=== PATIENT | female | born 1990 | race Caucasian/White ===

== ENCOUNTER → 2018-05-18 16:00 | Outpatient (CLI) | payer MEDICAID, SELFPAY ==
[2018-05-23 15:00] LABS: HPV APTIMA, High Risk Negative (Negative)
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
== END ==
PROVIDERS: Family Provider Internal Medicine; PCP Internal Medicine; Referring Provider Obstetrics & Gynecology; Visit Provider Obstetrics & Gynecology
DX: Z12.4 Encounter for screening for malignant neoplasm of cervix (principal)
CPT/HCPCS: 88175; G0145

== ENCOUNTER 2021-03-15 11:10 | Inpatient (IN) | payer OTHER, SELFPAY ==
[2021-03-15] VITALS (50 sets, daily range): BP systolic 114–180; BP diastolic 56–85; PULSE 46–208; RESP 14–16; TEMP 36.2–37.3; O2SAT 82–100; BMI 33.1
[2021-03-15] MEDS: Lactated Ringers 1,000 ML 50 ML IV (11:46)
[2021-03-15] MEDS: Magnesium Sulfate 20 GM/500 ML BAG IV ×2 (11:47→21:46)
[2021-03-15] MEDS: 0.9% Saline Lock 10 ML Syringe IV (11:47)
[2021-03-15] MEDS: Acetaminophen 500 MG Tablet 1000 MG PO (11:49)
--- NOTE | 2021-03-15 12:30 | EKG12_ITS ---
Test Reason : TACHY & HTN Blood Pressure : / mmHG Vent. Rate : 050 BPM Atrial Rate : 050 BPM P-R Int : 126 ms QRS Dur : 082 ms QT Int : 500 ms P-R-T Axes : 039 081 050 degrees QTc Int : 455 ms Sinus bradycardia with sinus arrhythmia Otherwise normal ECG When compared with ECG of 16-AUG-2011 14:29, No significant change was found Confirmed by BENTLEY NICK, RUBY ([id number]), editor book STEPHANIE COMER ([id number]) on 03/18/2021 10:17:20 AM Referred By: JOSÉ ANTONIO Confirmed By:RUBY HAGAN MD
--- NOTE | 2021-03-15 13:29 | HP.PCM.OB_ITS ---
HPI - General General Date of Admission: 03/15/21 HPI Phoenix CLAY, is a 31 F who presents from outside ED via squad. She delivered [address] [facility]. Patient presented early this morning to ED with a headache since last night. Denies RUQ pain. Currently she describes her headache as in her posterior head, neck & upper back. PFSH PFSH Medical History (Updated 03/15/21 @ 13:[address] Sabine Samayoa MD) History of kidney stones Severe pre-eclampsia, Home Medications ondansetron 4 mg PO Q8H PRN PRN #10 tab 08/26/16 [Rx Last Taken Unknown] acetaminophen [Tylenol] 650 mg PO Q8 PRN 03/15/21 [History Last Taken 03/14/21 650] hydrocodone-acetaminophen [Vicodin] 500 tab PO Q8 PRN 03/15/21 [History Last Taken 03/14/21 1900] ibuprofen 600 mg PO Q6H PRN MDD 2400 03/15/21 [History Last Taken 03/15/21 0000] Allergy/AdvReac Type Severity Reaction Status Date / Time No Known Allergies Allergy Verified 07/09/13 11:54 Surgical History (Updated 03/15/21 @ 13:[address] Sabine Samayoa MD) H/O lithotripsy Social History Smoking Status: Current every day smoker tobacco type: cigarettes Vital Signs Vital Signs Vital Signs: 03/15/21 11:36 03/15/21 11:48 03/15/21 12:02 Temperature Temperature Source Pulse Rate 65 50 L 50 L Respiratory Rate Respiratory Effort Respiratory Depth Respiratory Pattern Blood Pressure 123/61 H 140/74 H 146/71 H Blood Pressure [BP] Blood Pressure Mean Blood Pressure Mean [BP] BP Systolic 123 140 146 BP Diastolic 61 74 71 Blood Pressure Source Blood Pressure Source [BP] Blood Pressure Position Blood Pressure Position [BP] Blood Pressure Location Blood Pressure Location [BP] Pulse Ox Oxygen Delivery Method 03/15/21 12:18 03/15/21 12:24 03/15/21 12:32 Temperature 97.8 F 97.8 F Temperature Source Temporal Temporal Pulse Rate 51 L 51 L 51 L Respiratory Rate 16 16 Respiratory Effort Normal Respiratory Depth Normal Respiratory Pattern Normal Blood Pressure 130/61 H 130/61 H 129/65 H Blood Pressure [BP] 130/61 H Blood Pressure Mean 84 Blood Pressure Mean [BP] 84 BP Systolic 130 129 BP Diastolic 61 65 Blood Pressure Source Monitor Blood Pressure Source [BP] Monitor Blood Pressure Position Semi-Fowlers Blood Pressure Position [BP] Semi-Fowlers Blood Pressure Location Left Arm Blood Pressure Location [BP] Left Arm Pulse Ox 100 100 Oxygen Delivery Method Room Air Room Air 03/15/21 12:47 03/15/21 13:02 03/15/21 13:11 Temperature 97.8 F Temperature Source Temporal Pulse Rate 51 L 54 L 54 L Respiratory Rate 16 Respiratory Effort Respiratory Depth Respiratory Pattern Blood Pressure 124/63 H 121/56 H 121/56 H Blood Pressure [BP] Blood Pressure Mean 77 Blood Pressure Mean [BP] BP Systolic 124 121 BP Diastolic 63 56 Blood Pressure Source Monitor Blood Pressure Source [BP] Blood Pressure Position Semi-Fowlers Blood Pressure Position [BP] Blood Pressure Location Left Arm Blood Pressure Location [BP] Pulse Ox 98 Oxygen Delivery Method Room Air 03/15/21 13:13 Temperature Temperature Source Pulse Rate 46 L Respiratory Rate Respiratory Effort Respiratory Depth Respiratory Pattern Blood Pressure Blood Pressure [BP] Blood Pressure Mean Blood Pressure Mean [BP] BP Systolic BP Diastolic Blood Pressure Source Blood Pressure Source [BP] Blood Pressure Position Blood Pressure Position [BP] Blood Pressure Location Blood Pressure Location [BP] Pulse Ox 97 Oxygen Delivery Method Weight Weight: 187 lb Body Mass Index (BMI) 33.1 Physical Exam Const alert, oriented x3 and no apparent distress Resp normal respiratory effort GI soft to palpation, non-tender and non-distended Extremity normal to inspection and no calf tenderness Labs Labs Labs: Hct 39.2 % (37-47) Hgb 13.5 g/dl (12.0-15.0) Neisseria gonorrhoeae DNA (KEEGAN) Positive (Negative-) H Assessment & Plan (1) Severe pre-eclampsia, : COMMENT: HD#1 PLAN: Admit to L&D Plan for 24 hours magnesium sulfate. Patient aware that will likely be admitted until at least Wednesday. Labs normal at OSH Headache - CT at OSH negative for acute intracranial abnormality. May be more musculoskeletal based on location so will try head and flexeril PRN (checked interactions with pharmacy). Also patient usually smokes 1/2 PPD so would consider a nicotine 7mg patch as well. Bradycardia - sinus bradycardia on EKG. Will monitor & consult medicine if needed. Most recent HR of 56.
[2021-03-15] MEDS: cycloBENZAPRine HCl 10 MG Tablet PO (15:51)
[2021-03-15] MEDS: Morphine 2 MG/ML Syringe IV ×2 (19:22→21:45)
[2021-03-16] VITALS (111 sets, daily range): BP systolic 101–157; BP diastolic 55–85; PULSE 8–99; RESP 14–20; TEMP 35.7–37.4; O2SAT 82–100
[2021-03-16] MEDS: Morphine 2 MG/ML Syringe IV ×2 (00:19→06:46)
[2021-03-16] MEDS: DiphenhydrAMINE 25 MG Capsule 50 MG PO (03:09)
[2021-03-16] MEDS: Labetalol 200 MG Tablet PO ×3 (06:03→22:37)
[2021-03-16] MEDS: 0.9% Saline Lock 10 ML Syringe IV ×2 (06:47→09:00)
--- NOTE | 2021-03-16 07:04 | NURSING ---
Patient's pulse ox reading 91% on room air while sensor on right big toe. Pulse ox sensor moved to index finger on right hand and reading 95% but decreased to 90-93%. Pt just received dose of morphine 1ml for headache, pt resting but awakens easily to voice.
[2021-03-16] MEDS: Magnesium Sulfate 20 GM/500 ML BAG IV (07:12)
[2021-03-16] MEDS: Lactated Ringers 1,000 ML 50 ML IV (07:14)
--- NOTE | 2021-03-16 09:18 | PCM.PN.OB ---
Subjective Subjective Patient states her headache is still there. It improves with morphine. Patient was able to sleep last night Objective Data Objective Data Vital Signs: Vital Signs Temp Pulse Resp BP Pulse Ox 98.1 F 72 16 112/69 97 03/16/21 09:00 03/16/21 09:00 03/16/21 09:00 03/16/21 09:00 03/16/21 09:00 Oxygen Delivery Method Room Air Weight: 187 lb Body Mass Index (BMI) 33.1 Intake & Output: Intake and Output for Last 24 Hours 03/14/21 03/15/21 03/16/21 23:59 23:59 23:59 Intake Total 1993.34 / 1992.34 1500.83 / 1500.83 Output Total 3200 / 3200 2650 / 2650 Balance -1206.66 / -1206.66 -1149.17 / -1149.17 Physical Exam Const alert, oriented x3 and no apparent distress HEENT normocephalic GI soft to palpation, non-tender and non-distended GI Narrative: fundus firm, mid & below umbilicus Extremity normal to inspection and no calf tenderness Assessment & Plan (1) Severe pre-eclampsia, : COMMENT: HD#2 PLAN: S/p 24hours magnesium sulfate Headache is stable & improves with morphine. Will assess for improvement off magnesium and with patient resuming normal activities (eating a normal diet & resuming tobacco use). If headache persists will consult anesthesia for possible spinal headache as patient reports 2 epidural attempts & the headache is a little better barreto she lays down (patient has not tried laying completed flat yet). Continue labetalol 200mg tid and will titrate as needed Routine PP care
--- NOTE | 2021-03-16 12:23 | NURSING ---
Dr Samayoa called at 1208 and informed pt rested for 2 hours almost completely flat in bed. pt voiced headache was was just dull and achy 3/10 scale. once she sat straight up it began to throb again 7/10 scale. had ate breakfast and drank some caffeine. Dr Samayoa wants anesthesia to come over and talk with pt for spinal headache rule out. Dr Broussard notified and informed of the above information. also aware pt delivered on 03/05 and multiple attempts for epidural at delivery hospital. headache came on a 2-3 days ago. pt is a smoker and had not been out to smoke. Dr sewell believes this is not a spinal headache. Pt currently pumping and will be going outside to smoke to see if that helps with her headache. fluids encouraged.
[2021-03-16] MEDS: Acetaminophen/Butalbital/Caffe 1 Tablet PO (13:24)
[2021-03-17 04:15] VITALS: BP 131/74; PULSE 56; RESP 20; TEMP 37
[2021-03-17 04:16] VITALS: BP 131/74; PULSE 56
[2021-03-17] MEDS: Labetalol 200 MG Tablet PO (06:08)
[2021-03-17 08:00] VITALS: BP 135/77; PULSE 64; RESP 18; TEMP 36.2; O2SAT 99
--- NOTE | 2021-03-17 08:08 | PCM.DC ---
Discharge Instructions Diet Discharge Diet: No restrictions Activity May resume sexual activity in: 6-8 weeks Additional Activity Instructions:: CHECK BP before taking labetalol and then 1 hour after. Dressing / Incision Call your doctor if you observe: Fever of 101 or Higher, Inability to urinate, Using more than 1 pad per hour and Uncontrolled pain Follow Up Care Please Follow Up With: Kathy Harding MD When: WednesdayMarch 19 at 9am for BP check and then at 6 weeks post . [phone] Test Results: Test results from this visit will be discussed in further detail at your follow-up appointment, if applicable. Discharge Plan Admission Admit Date/Time: 03/15/21 11:10 Attending Provider: Sabine Samayoa Primary Care Provider: Lety Borden Instructions Patient Instructions: Understanding Preeclampsia Discharge Orders/Prescriptions Prescriptions: New (DME) Blood Pressure Cuff Misc See Rx Instructions .ROUTE .MEDSUPPLY Qty: 1 RF: 0 labetalol 200 mg Tablet 200 mg PO TID Qty: 90 RF: 0 Continued ondansetron 4 MG tablet 4 mg PO Q8H PRN PRN (Reason: Nausea) Qty: 10 RF: 0 acetaminophen [Tylenol] 325 mg Tablet 650 mg PO Q8 PRN (Reason: Pain) RF: 0 hydrocodone-acetaminophen 5-500 mg Tablet 500 tab PO Q8 PRN (Reason: Pain) RF: 0 ibuprofen 600 mg Tablet 600 mg PO Q6H MDD 2400 PRN (Reason: Pain) RF: 0 Referrals / Follow Up: Lety Borden MD [Primary Care Provider] -
[2021-03-17 08:16] VITALS: BP 135/77; PULSE 64
--- NOTE | 2021-03-17 08:23 | PCM.DC.BLA ---
Discharge Summary Date of Admission: 03/15/21 Date of Discharge: 03/17/21 Summary: Patient was admitted to [facility] on 03/15/[address] Samayoa for preeclampsia severe features. Patient was placed on magnesium sulfate x24 hours. Started on labetalol 200 mg 3 times daily. Prior to this admission patient had a CT of the head which was within normal limits-this was done at [facility]. Patient was discharged home on hospital day #2 in stable condition. Patient will monitor blood pressure continue labetalol at home and will follow-up in the office on 03/19/2021. Meaningful Use Info Meaningful Use Diagnoses (Choose all that apply): None applicable Discharge Plan Admission Admit Date/Time: 03/15/21 11:10 Attending Provider: Sabine Samayoa Primary Care Provider: Lety Borden Instructions Patient Instructions: Understanding Preeclampsia Discharge Orders/Prescriptions Prescriptions: New (DME) Blood Pressure Cuff Misc See Rx Instructions .ROUTE .MEDSUPPLY Qty: 1 RF: 0 labetalol 200 mg Tablet 200 mg PO TID Qty: 90 RF: 0 Continued ondansetron 4 MG tablet 4 mg PO Q8H PRN PRN (Reason: Nausea) Qty: 10 RF: 0 acetaminophen [Tylenol] 325 mg Tablet 650 mg PO Q8 PRN (Reason: Pain) RF: 0 hydrocodone-acetaminophen 5-500 mg Tablet 500 tab PO Q8 PRN (Reason: Pain) RF: 0 ibuprofen 600 mg Tablet 600 mg PO Q6H MDD 2400 PRN (Reason: Pain) RF: 0 Referrals / Follow Up: Lety Borden MD [Primary Care Provider] - Disposition Disposition (needs filled in before D/C Order can be placed): Home, Self Care
--- NOTE | 2021-03-17 08:24 | PCM.PN.OB ---
Subjective Subjective Patient seen at bedside, doing well. Patient reports feeling much better. She denies any headaches or visual changes. She was up ambulating. Patient reports is breast-feeding. Lochia is mild. Patient ready for DC home today. Objective Data Objective Data Vital Signs: Vital Signs Temp Pulse Resp BP Pulse Ox 97.1 F L 64 18 135/77 H 99 03/17/21 08:00 03/17/21 08:16 03/17/21 08:00 03/17/21 08:16 03/17/21 08:00 Oxygen Delivery Method Room Air Weight: 84.822 kg Body Mass Index (BMI) 33.1 Intake & Output: Intake and Output for Last 24 Hours 03/15/21 03/16/21 03/17/21 23:59 23:59 23:59 Intake Total 1992.34 / 34 1679.16 / 1679.16 Output Total 3200 / 3200 2650 / 2650 Balance -1206.66 / -1206.66 -970.84 / -970.84 Assessment & Plan (1) Severe pre-eclampsia, : COMMENT: HD#3 PLAN: HD#3, doing well s/p MgSO4 x 24hrs for Severe PRE E in period 1) continue labetalol 200mg TID 2) BP cuff ordered- reviewed when to check and when to call office 3) BP check in office 03/19 @ 9am
--- NOTE | 2021-03-18 14:37 | NURSING ---
Follow up phone placed. Pt states doing well at home. Picked up BP cuff today. Understands d/c information and medication instructions. Bleeding appropriate. Feeding going well. Has appointment tomorrow for BP check. Questioned answered and pt instructed to call back in if she has any questions or concerns.
== END 2021-03-17 09:00 | disposition home or self-care (01) | DRG 776 ==
PROVIDERS: Admitting Provider Obstetrics & Gynecology; PCP Internal Medicine; Visit Provider Obstetrics & Gynecology
DX: O14.95 Unspecified pre-eclampsia, complicating the puerperium (principal); Z87.442 Personal history of urinary calculi; F17.210 Nicotine dependence, cigarettes, uncomplicated
CPT/HCPCS: 93005; 99406; J7120; A4216

== ENCOUNTER → 2021-05-30 12:03 | Outpatient (CLI) | payer OTHER, SELFPAY | PROVIDERS: PCP Internal Medicine; Referring Provider Physician Assistant Surgical; Visit Provider Physician Assistant Surgical | DX: U07.1 COVID-19 (principal) | CPT/HCPCS: 87635; U0005; U0003 ==